=== PATIENT | male | born 1950 | race Caucasian/White ===

== ENCOUNTER 2022-10-15 15:28 | Outpatient (AMB) | payer MEDICARE, MEDICAID, SELFPAY ==
--- NOTE | 2022-10-15 15:32 | MHC.OFFVIS ---
Intake Vital Signs 10/15/22 15:33 Height 5 ft 6 in Weight 183 lb 8 oz BMI 29.6 Pulse 73 Pulse Source Pulse Oximeter Pulse Oximetry (%) 94 Oxygen Delivery Method Room Air Intake Visit Reasons: prev pt re-referred for worsening head movements Intake Note: Pt presents today for worsening head movements, states ongoing for years. Pt states he has seen a neurologist in the past .Does not want any testing. Allergies No Known Allergies Allergy (Verified 10/15/22 15:36) Medication List - Last Reconciled 10/15/22 by Nery Gamble MD albuterol sulfate 90 mcg/actuation 1 inh inhalation QID apremilast (Otezla) 30 mg PO BID atorvastatin 80 mg PO BEDTIME dulaglutide (Trulicity) 0.75 mg subcut QWEEK empagliflozin (Jardiance) 25 mg PO DAILY glipizide ER 2.5 mg PO QAM hydroxyzine pamoate 25 mg PO BID PRN insulin glargine (Lantus Solostar U-100 Insulin) units subcut lancets (FreeStyle Lancets) As directed pantoprazole 40 mg PO BID risperidone 0.5 mg PO BID HPI HPI Comments History of Present Illness Details 72y/o male with a complex medical history and TIC disorder comes for follow up after more than 2 years . He has h/o TIC disorder and was managed with risperdal 0.25mg bid for 2 years . Now he reports that risperdal does not help. His head movements are present most of the time , he can suppress it for a brief period . He denies any other involuntary movements. [facility] Medical History (Updated 10/15/22 @ 15:57 by Nery Gamble MD) Abnormal involuntary movements Chronic kidney disease Combined hyperlipidemia COPD (chronic obstructive pulmonary disease) Diabetes HTN (hypertension) Kidney stone Psoriasis Tic disorder Family History Mother Mad cow disease (human variant) Social History Alcohol intake: never Patient Tobacco Use Status: Current someday Tobacco user Review of Systems Const Reports daytime sleepiness and Reports frequent falls ENT Reports neck pain Musc Reports abnormal gait, Reports back pain, Reports arthralgias and Reports neck pain Neuro Reports abnormal gait, Reports frequent falls and Reports tremor(s) Physical Exam Vital Signs: Last Vital Signs Pulse 73 10/15/22 15:33 Pulse Ox 94 10/15/22 15:33 Oxygen Delivery Method Room Air 10/15/22 15:33 BMI result Body Mass Index 29.6 Const General: cooperative Nutritional Appearance: obese Orientation/consciousness: patient oriented x3 Eyes Pupils: Equal, round and reactive pupils present Neuro Other: Abnormal involuntary movements of his heda- TIC chorea? and mild hand movements and tongue movements gait mild off balance . slow General: patient oriented x3, tone normal and moves all extremities Cranial nerves: Yes Equal, round and reactive pupils present, Yes Bilaterally intact EOM present, Yes Nystagmus not present, Yes Normal facial strength present and Yes Midline tongue present Cognition (Neuro): normal cognition Gait exam (Neuro): Other gait observations present Motor exam (neuro): 5/5 motor strength present throughout and Normal motor muscle tone present throughout Deep tendon reflexes (DTR's): Right triceps reflex intensity grade: 2+, Left triceps reflex intensity grade: 2+, Rt Biceps (C5, C6): 2+, Left biceps reflex intensity grade: 2+, Right brachioradialis reflex intensity grade: 2+, Left brachioradialis reflex intensity grade: 2+, Right patellar reflex intensity grade: 2+ and Left patellar reflex intensity grade: 2+ Coordination: [id number] test normal Assessment & Plan Assessment & Plan (1) Abnormal involuntary movements: Comment: ? TICS ? [place] Code(s): R25.9 - Unspecified abnormal involuntary movements Plan Declines any testing I will trial him on higher dose of rispedal 0.5mg bid Medications: Changed From risperidone 0.25 mg PO BID 60 tabs 0RF To risperidone 0.5 mg PO BID 60 tabs 4RF Coding Level of Care Code New Pt Level 4 (45207) Diagnoses Abnormal involuntary movements R25.9
[2022-10-15 15:33] VITALS: PULSE 73; O2SAT 94; BMI 29.6
== END 2022-10-15 16:00 | disposition home or self-care (01) ==
PROVIDERS: Visit Provider Psychiatry & Neurology Neurology
DX: R25.9 Unspecified abnormal involuntary movements (principal)
CPT/HCPCS: 99204; 99214

== ENCOUNTER → 2022-10-15 15:28 | Outpatient (BNVA) | payer MEDICARE, MEDICAID, SELFPAY | PROVIDERS: Visit Provider Psychiatry & Neurology Neurology | DX: R25.9 Unspecified abnormal involuntary movements (principal) | CPT/HCPCS: 99202 ==